=== PATIENT | female | born 1960 | race Native Hawaiian/Other Pacific Islander ===

== ENCOUNTER 2018-04-27 20:25 | Emergency (ER) | payer OTHER ==
[2018-04-27 20:44] VITALS: BP 137/78; PULSE 66; RESP 16; TEMP 98.7; O2SAT 98
--- NOTE | 2018-04-27 21:29 | C.PDOC ---
History Of Present Illness 58yo female, presents to ED for evaluation of right knee injury after she bumped her knee against a cart. Patient states the cart got stuck on a hole in the parking lot and she accidentally rammed her knee into the cart. She reports bruising to the knee but denies any weakness, numbness or tingling. She has no other medical complaints. Time Seen by Provider: 04/27/18 20:50 Chief Complaint (Nursing): Lower Extremity Problem/Injury History Per: Patient History/Exam Limitations: no limitations Onset/Duration Of Symptoms: Hrs Current Symptoms Are (Timing): Still Present Additional History Per: Patient - Knee Description Of Injury: Struck Against Object Past Medical History Reviewed: Historical Data, Nursing Documentation, Vital Signs Vital Signs: Last Vital Signs Temp 98.7 F 04/27/18 20:34 Pulse 66 04/27/18 20:34 Resp 16 04/27/18 20:34 BP 137/78 04/27/18 20:34 Pulse Ox 98 04/27/18 21:29 - Medical History PMH: Asthma Surgical History: No Surg Hx Family History: States: No Known Family Hx - Social History Hx Tobacco Use: No Hx Alcohol Use: Yes Hx Substance Use: No - Immunization History Hx Tetanus Toxoid Vaccination: Yes (not sure) Hx Influenza Vaccination: Yes Hx Pneumococcal Vaccination: Yes Review Of Systems Except As Marked, All Systems Reviewed And Found Negative. Musculoskeletal: Positive for: Other (right knee injury) Neurological: Negative for: Weakness, Numbness Physical Exam - Physical Exam Appears: Non-toxic, No Acute Distress Skin: Warm, Dry Head: Normacephalic Eye(s): bilateral: Normal Inspection Neck: Supple Chest: Symmetrical, Tenderness Cardiovascular: Rhythm Regular Respiratory: Normal Breath Sounds Extremity: Normal ROM, Tenderness (tenderness to lateral right lower extremity, distal to right knee. +ecchymosis noted to area as well.), No Pedal Edema, No Calf Tenderness, No Deformity, No Swelling Neurological/Psych: Oriented x3 Gait: Steady ED Course And Treatment O2 Sat by Pulse Oximetry: 98 (RA) Pulse Ox Interpretation: Normal Progress Note: Patient given Motrin 600mg PO and Tylenol 650mg PO for pain relief. XR right knee ordered. XR reviewed by me, shows no fractures or dislocations. Manjinder wrap applied by RN and checked by me; repeat exam with neurovascular sensations intact. Patient advised on RICE and instructed to follow up with PMD in 2-3 days. Disposition Counseled Patient/Family Regarding: Diagnosis, Need For Followup - Disposition Referrals: Viktor Rivas MD [Medical Doctor] - Disposition: HOME/ ROUTINE Disposition Time: 21:26 Condition: STABLE Additional Instructions: Apply ICE to area Tylenol or advil for pain Leg elevation Return to ER if worse Instructions: Contusion (DC) Forms: [employer] (Polish), Work Excuse - Clinical Impression Clinical Impression: Contusion of knee, left - PA / BODY RECALL INSTRUCTOR / Resident Statement MD/DO has reviewed & agrees with the documentation as recorded. - Scribe Statement The provider has reviewed the documentation as recorded by the Scribe (Kristi Hess) Provider Attestation: All medical record entries made by the Scribe were at my direction and personally dictated by me. I have reviewed the chart and agree that the record accurately reflects my personal performance of the history, physical exam, medical decision making, and the department course for this patient. I have also personally directed, reviewed, and agree with the discharge instructions and disposition.
--- NOTE | 2018-04-28 09:57 | RAD ---
PROCEDURE: Left Knee Radiographs. HISTORY: Pain. COMPARISON: None. FINDINGS: BONES: Normal. No fracture. JOINTS: Normal. No osteoarthritis. JOINT EFFUSION: None. OTHER FINDINGS: None. IMPRESSION: Normal radiographs of the left knee.
== END 2018-04-27 21:46 | disposition home or self-care (01) ==
LOC: C.ER 20:25
DX: S80.02XA Contusion of left knee, initial encounter (principal); W22.8XXA Striking against or struck by other objects, initial encounter; Y92.481 Parking lot as the place of occurrence of the external cause